=== PATIENT | female | born 1950 | race Caucasian/White ===

== ENCOUNTER 2020-06-05 16:40 | Emergency (ER) | payer MEDICARE, BC ==
[~2020-06-05] VITALS: Ht 160 cm; Wt 79.0 kg
[~2020-06-05 16:40] MED LIST: ESTR1TAB28 PO; GABA-581 PO; HYDR-4383 PO; LEVO137T2 PO; METO-384 PO; TRAZ-251 PO; ZOLP5TAB2 PO
[2020-06-05 17:17] LABS: BASOPHILS % (AUTO) 0.5 % (0-1); EOSINOPHILS # (AUTO) 0.3 X10'3 (0-0.9); EOSINOPHILS % (AUTO) 3.2 % (0-6); HEMATOCRIT 42.5 % (35.0-45.0); HEMOGLOBIN 14.1 g/dl (12.0-16.0); LYMPHOCYTES # (AUTO) 2.3 X10'3 (1.1-4.8); LYMPHOCYTES % (AUTO) 29.7 % (21-51); MEAN CORPUSCULAR HEMOGLOBIN 31.2 PG (27.0-31.0); MEAN CORPUSCULAR HGB CONC 33.1 g/dL (33.0-36.5); MEAN CORPUSCULAR VOLUME 94.2 FL (78-98); MEAN PLATELET VOLUME 7.9 FL (7.4-10.4); MONOCYTES # (AUTO) 0.9 X10'3 (0-0.9); MONOCYTES % (AUTO) 11.1 % (2-12); NEUTROPHILS # (AUTO) 4.3 X10'3 (1.8-7.7); NEUTROPHILS % (AUTO) 55.5 % (42-75); PLATELET COUNT 243 X10'3 (140-440); RED BLOOD COUNT 4.51 X10'6 (4.20-5.60); RED CELL DISTRIBUTION WIDTH 12.7 % (11.5-14.5); WHITE BLOOD COUNT 7.7 X10'3 (4.5-11.0)
[2020-06-05 17:27] LABS: PARTIAL THROMBOPLASTIN TIME 26 SECONDS (22-32)
[2020-06-05 17:35] LABS: ALANINE AMINOTRANSFERASE 44 U/L (12-78); ALBUMIN 4.1 G/DL (3.4-5.0); ALBUMIN/GLOBULIN RATIO 1.1 (1.1-1.5); ALKALINE PHOSPHATASE 82 IU/L (46-116); ANION GAP 8 (8-16); ASPARTATE AMINO TRANSFERASE 30 U/L (10-37); BILIRUBIN,TOTAL 0.3 MG/DL (0.1-1.0); BLOOD UREA NITROGEN 16 MG/DL (7-18); BUN/CREATININE RATIO 18.2 (6.6-38.0); CHLORIDE 106 MMOL/L (99-107); CREATININE 0.88 MG/DL (0.40-0.90); GLUCOSE 90 MG/DL (70-104); POTASSIUM 3.6 MMOL/L (3.5-5.1); SODIUM 140 MMOL/L (135-145); TOTAL CARBON DIOXIDE 25.8 MMOL/L (24-32); eGFR 64 ML/MIN
[2020-06-05 18:54] VITALS: BP 162/68
[2020-06-05] MEDS ORDERED: dicyclomine 10 MG capsule PO ONE (19:05)
[2020-06-05] MEDS ORDERED: LIDOcaine Viscous 15ml cup MM ONE (19:05)
[2020-06-05] MEDS ORDERED: mag hydrox/Alum hydrox/simeth 30ml oral suspension PO ONE (19:05)
== END 2020-06-05 19:52 | disposition home or self-care (01) ==
LOC: ER 16:41
DX: R07.89 Other chest pain (principal); I10 Essential (primary) hypertension; E03.9 Hypothyroidism, unspecified; Z88.2 Allergy status to sulfonamides; Z79.899 Other long term (current) drug therapy
CPT/HCPCS: 36415; 71045; 80053; 83735; 83880; 84484; 85025; 85610; 85730; 93005; 99285

== ENCOUNTER 2020-07-16 09:27 | Day surgery (SDC) | payer MEDICARE, BC ==
[2020-07-15 12:15] LABS: BASOPHILS % (AUTO) 0.5 % (0-1); EOSINOPHILS # (AUTO) 0.2 X10'3 (0-0.9); EOSINOPHILS % (AUTO) 3.7 % (0-6); HEMATOCRIT 42.1 % (35.0-45.0); LYMPHOCYTES # (AUTO) 1.9 X10'3 (1.1-4.8); LYMPHOCYTES % (AUTO) 30.3 % (21-51); MEAN CORPUSCULAR HEMOGLOBIN 31.8 PG (27.0-31.0); MEAN CORPUSCULAR HGB CONC 33.3 g/dL (33.0-36.5); MEAN CORPUSCULAR VOLUME 95.5 FL (78-98); MEAN PLATELET VOLUME 8.4 FL (7.4-10.4); MONOCYTES # (AUTO) 0.6 X10'3 (0-0.9); MONOCYTES % (AUTO) 9.3 % (2-12); NEUTROPHILS # (AUTO) 3.5 X10'3 (1.8-7.7); NEUTROPHILS % (AUTO) 56.2 % (42-75); PLATELET COUNT 258 X10'3 (140-440); WHITE BLOOD COUNT 6.3 X10'3 (4.5-11.0)
[2020-07-15 12:19] LABS: ALBUMIN 3.9 G/DL (3.4-5.0); BLOOD UREA NITROGEN 13 MG/DL (7-18); BUN/CREATININE RATIO 16.5 (6.6-38.0); CREATININE 0.79 MG/DL (0.40-0.90); GLUCOSE 97 MG/DL (70-104); TOTAL CARBON DIOXIDE 26.1 MMOL/L (24-32); eGFR 72 ML/MIN
[2020-07-15 12:27] LABS: PARTIAL THROMBOPLASTIN TIME 25 SECONDS (22-32)
[2020-07-15 12:44] LABS: ANION GAP 9 (8-16); CHLORIDE 108 MMOL/L (99-107); POTASSIUM 4.5 MMOL/L (3.5-5.1); SODIUM 143 MMOL/L (135-145)
[2020-07-16] VITALS (9 sets, daily range): BP systolic 131–163; BP diastolic 50–78
[~2020-07-16] VITALS: Ht 160 cm; Wt 79.9 kg
[2020-07-16] MEDS ORDERED: diphenhydrAMINE 25mg capsule PO PRN (09:55)
[2020-07-16] MEDS ORDERED: LORazepam 0.5 MG tablet PO PRN (09:55)
[2020-07-16] MEDS ORDERED: normal saline 1,000 ML IV SCH (09:55)
[2020-07-16] MEDS ORDERED: LEVO112C4 PO (09:59)
[2020-07-16] MEDS ORDERED: TOPI25TA49 PO (10:00)
[2020-07-16] MEDS ORDERED: midazolam 2 mg/2 ml injection ONE (13:18)
[2020-07-16] MEDS ORDERED: nitroGLYCERIN-Tridil 50MG/D5W 250 ML IV ONE (13:18)
[2020-07-16] MEDS ORDERED: fentaNYL/PF 50MCG/1 ML 2ML syringe ONE (13:18)
[2020-07-16] MEDS ORDERED: LIDOcaine 1% (10mg/ml)w/preservative injection 20ml MDV ONE (13:18)
[2020-07-16] MEDS ORDERED: iohexol 350 MG/ML 50ML vial IV ONE (13:19)
[2020-07-16] MEDS ORDERED: iohexol 350MG/ML 100ml bottle IV ONE (13:19)
[2020-07-16] MEDS ORDERED: heparin 1,000unit/ml 10ml vial 10 ML ONE (13:19)
== END 2020-07-16 18:00 | disposition home or self-care (01) ==
LOC: SSTAY O 09:27
PROVIDERS: ATTEND Internal Medicine Cardiovascular Disease
DX: R94.39 Abnormal result of other cardiovascular function study (principal); R06.02 Shortness of breath; I25.10 Atherosclerotic heart disease of native coronary artery without angina pectoris; I10 Essential (primary) hypertension; E78.5 Hyperlipidemia, unspecified; F32.9 Major depressive disorder, single episode, unspecified; E03.9 Hypothyroidism, unspecified; G47.00 Insomnia, unspecified; F41.0 Panic disorder [episodic paroxysmal anxiety]; Z90.710 Acquired absence of both cervix and uterus; Z90.49 Acquired absence of other specified parts of digestive tract; Z79.899 Other long term (current) drug therapy; Z98.890 Other specified postprocedural states; Z88.2 Allergy status to sulfonamides; Z95.5 Presence of coronary angioplasty implant and graft; Z82.49 Family history of ischemic heart disease and other diseases of the circulatory system
CPT/HCPCS: 36415; 80048; 85025; 85730; 93005; 93458; 99152; C1760; C1769; J1644; J2001; J2250; J3010; J7030; Q0163; Q9967; 99153; A4620; A6258; J3490